=== PATIENT | male | born 1960 | race Caucasian/White ===

== ENCOUNTER 2016-06-26 14:44 | Inpatient (IN) | payer OTHER ==
--- NOTE | ~2016-06-26 | DS ---
Discharge Summary [facility] [address] [place]. [address] NAME: BETO FAIRBANKS : 64 STATUS : DIS IN PAT#: [id number] AGE: 56 ADM/REG DATE : 06/26/16 MR#: [id number] REPORT SERV DATE: 07/06/16 DICTATED BY: FRED HARRISON DATE: 07/05/16 REPORT STATUS : Draft TRANSCRIBED BY: MODL DATE: 07/05/16 ADMISSION DATE: 06/26/2016 DISCHARGE DATE: 07/05/2016 DISCHARGE DIAGNOSES: 1. Acute on chronic hypoxic and hypercapnic respiratory failure. 2. Bilateral pulmonary interstitial infiltrates of uncertain etiology. 3. Acute exacerbation of chronic obstructive pulmonary disease, currently stable. 4. Metastatic lung cancer. 5. Alcohol withdrawal. 6. Chronic microcytic anemia. 7. Chronic obstructive pulmonary disease. 8. History of polycythemia vera. 9. Left elbow abscess. CONSULTANTS DURING THIS HOSPITALIZATION: 1. Dr. Dc with Surgery. 2. Dr. Lilliam Fajardo and Ambrocio Cloud PA-C, of Pulmonology. 3. Dr. Mckeon and Dr. Keith Flowers of [facility]. BRIEF HISTORY OF PRESENT ILLNESS: The patient is a 56-year-old male with above history who presented to [facility] due to worsening shortness of breath. For detailed history and physical exam, please see note dictated by Dr. Chaudhry on 06/26/2016. HOSPITAL COURSE: After being admitted to the hospital, this patient was admitted to the [facility] under the care of Dr. James. Please refer to interim summary dictated by Dr. James on 07/04/2016. I took over this patient's care on 07/05/2016. This patient was doing relatively well. He was breathing better when his head was elevated to 30 degrees and he has required home O2. These are being arranged through our Case Management Department, and he was also given a hospital bed because of changing in positioning that helps his breathing. This patient was noted to have Staph aureus in the elbow wound culture. He has been on Bactrim. He continues to do better. However, I do not have the exact sensitivities. We discussed with the patient possibility of staying in the hospital one extra day. However, patient wants to go home and said that if he needs to change antibiotics he can come back and get that done through our Case Management Department. He remained stable, otherwise. He is on Librium which we will wean off. He is on prednisone which we will wean off. He has been given inhalers and home O2 will be arranged as well. DISCHARGE DISPOSITION: Home. DISCHARGE ACTIVITY: As tolerated. DISCHARGE DIET: Low-sodium diet. DISCHARGE MEDICATIONS: Vitamin B12 1000 mcg once daily; folic acid 1 mg once daily; Librium 10 mg p.o. taper; MD Torres mouthwash 10 mL 4 times daily; Bactrim DS one twice daily; Discharge Summary [address] [place]. [address] NAME: BETO FAIRBANKS : 64 STATUS : DIS IN PAT#: [id number] AGE: 56 ADM/REG DATE : 06/26/16 MR#: [id number] REPORT SERV DATE: 07/06/16 DICTATED BY: FRED HARRISON DATE: 07/05/16 REPORT STATUS : Draft TRANSCRIBED BY: JUAN DATE: 07/05/16 prednisone 20 mg p.o. taper; Prilosec 20 mg once daily; albuterol nebs 1 neb four times daily p.r.n. for shortness of breath; Xanax 0.25 mg p.o. twice daily p.r.n.; Nada 10/325 half tablet 4 times daily p.r.n. for pain, #10 with no refills given; oxycodone 5 mg q.4 p.r.n., #15 with no refills given; Ventolin HFA as rescue inhaler as needed; Hydrea 1000 mg once daily; potassium 10 mEq once daily; Neosporin as needed; Breo Ellipta 2 puffs 2 puffs twice daily. DISCHARGE FOLLOWUP: With Dr. Flowers and with Dr. Luis Nam as needed. More than 35 minutes spent planning this patient's discharge, reconciling medications, writing prescriptions, discussing hospital care, followup with the patient and documenting this discharge. ZACH/JUAN Fred Harrison M.D. / [id number] CC: Nahed Peterson M.D. Bertrand Marquess Anz III, M.D.
--- NOTE | ~2016-06-26 | IDS ---
Interim Discharge Summary [facility] [address] [place]. [address] NAME: BETO FAIRBANKS : 64 STATUS : ADM IN [facility]#: [id number] AGE: 56 ADM/REG DATE : 06/26/16 MR#: [id number] REPORT SERV DATE: 07/04/16 DICTATED BY: HANNY CALI II DATE: 07/04/16 REPORT STATUS : Draft TRANSCRIBED BY: MODL DATE: 07/04/16 ADMISSION DATE: 06/26/2016 DISCHARGE DATE: DATE OF INTERIM: 06/04/2016. INTERIM DIAGNOSES: 1. Acute hypoxic and hypercapnic respiratory failure. 2. Bilateral pulmonary interstitial infiltrates of uncertain etiology. 3. Acute exacerbation of chronic obstructive pulmonary disease. 4. Metastatic lung cancer. 5. Ethanol withdrawal. 6. Chronic macrocytic anemia. 7. Chronic obstructive pulmonary disease. 8. History of polycythemia vera. 9. Left elbow abscess. CONSULTS: 1. Dr. Dc with Surgery. 2. Dr. Fajardo and Dr. Bk Cloud with Pulmonary. 3. Dr. Mckeon and Dr. Flowers with [facility]. BRIEF HISTORY OF PRESENT ILLNESS: The patient is a 56-year-old male with the above history, who presented to [facility] due to worsening shortness of breath. For detailed history and physical examination, please see Dr. Chaudhry's note from 06/26/2016. HOSPITAL COURSE: On admission, the patient's blood gas showed a pH of 7.36, pCO2 of 49, PO2 of 92 on 50%. He is very short of breath, wheezing. He was evaluated by Critical Care originally in the ICU and given his underlying lung cancer, he was placed on Vapotherm and monitored in the IMCU. Critical Care subsequently signed off. The patient continued to have difficulty breathing and was placed on BiPAP intermittently. His pCO2 seem to wax and wane and he began to become somewhat altered and agitated fighting his BiPAP. It came to light that he drank about a 12-pack or more a day and was likely experiencing ethanol withdrawal. He was briefly placed on Precedex drip and given fairly aggressive Ativan for several days until he is able to be weaned off. A CTA of his chest was also done, given concern for possible pulmonary embolism. There was no pulmonary embolism found; however, it did show a diffuse hazy interstitial infiltrates throughout the lung dominguez concerning for pulmonary edema, pneumonitis versus interstitial spread of malignancy. Otherwise, it showed previously known 2.1 cm centrally necrotic appearing left lymph node adjacent to the pectoralis muscle as well as cavitary nodule and two more solid-appearing nodules in the right upper lobe and an irregular nodular infiltrate in the left upper lobe suspicious for pulmonary metastatic disease. The patient had reportedly been previously responding to his chemotherapy treatment with several of his nodes and nodules showing improvement, so interstitial spread of disease seemed less likely. Pulmonary was reconsulted and has subsequently assisted. The patient has been on antibiotic, steroids, and aggressive bronchodilator treatment with BiPAP and seems to be improving slowly. He has been able to Interim Discharge Summary [address] [address] NAME: BETO FAIRBANKS : 64 STATUS : ADM IN PAT#: [id number] AGE: 56 ADM/REG DATE : 06/26/16 MR#: [id number] REPORT SERV DATE: 07/04/16 DICTATED BY: HANNY CALI II DATE: 07/04/16 REPORT STATUS : Draft TRANSCRIBED BY: JUAN DATE: 07/04/16 wean down off his BiPAP and diffuse wheezing also improved, now he is down to 5 L by nasal cannula and rapidly improving. Hopefully, he will be able to go home in the next day or so and home oxygen will be arranged. Also of note, he was noted to have a left elbow fluid collection concerning for abscess. X-ray was unremarkable for joint effusion and Dr. Dc was consulted for I and D. This was accomplished this morning and cultures have been sent. The patient had previous been finished with his antibiotic course for his COPD exacerbation. Though, we will start Bactrim for treatment of his elbow until cultures return. Dr. Harrison will take over the patient's care starting tomorrow. ROSANNE/JUAN Hanny Cali II, MD / [id number] CC: Hanny Cali II, MD
--- NOTE | ~2016-06-26 | OP ---
Record Of Operation [facility] [address] [place]. [address] NAME: BETO FAIRBANKS : 64 STATUS : ADM IN [facility]#: [id number] AGE: 56 ADM/REG DATE : 06/26/16 MR#: [id number] REPORT SERV DATE: 07/04/16 DICTATED BY: ANDREW NUÑEZ DATE: 07/04/16 REPORT STATUS : Draft TRANSCRIBED BY: MODConcepcion DATE: 07/04/16 DATE OF PROCEDURE: 07/04/2016 PREOPERATIVE DIAGNOSES: 1. Left elbow abscess. 2. Stage IV lung cancer. 3. Alcohol withdrawal. 4. Chronic obstructive pulmonary disease exacerbation. 5. Nicotine dependence. POSTOPERATIVE DIAGNOSES: 1. Left elbow abscess. 2. Stage IV lung cancer. 3. Alcohol withdrawal. 4. Chronic obstructive pulmonary disease exacerbation. 5. Nicotine dependence. PROCEDURE: Incision and drainage of complex left elbow abscess with culture. ANESTHESIA: IV pain medications and local anesthesia. COMPLICATIONS: None. DRAINS: None. ESTIMATED BLOOD LOSS: 15 mL. FINDINGS: The patient was noted to have a fluctuant erythematous left elbow mass. It was prepped with Betadine solution and drained with a thick yellow white purulent drainage that was cultured. The patient remained at the bedside. He was informed of the risks, benefits, and alternatives, and agreed to the procedure. He is aware of the potential for bleeding, infection, poor cosmetic result, chronic pain, need for further surgical intervention, and limb loss. OPERATIVE TECHNIQUE: The patient remained at his bedside and had preoperative IV pain medicine per schedule. His left elbow was then prepped and draped with Betadine solution. Local anesthesia was then instilled. A 15 blade knife was used to make a longitudinal incision over the most fluctuant area with approximately 50 mL of purulent yellow white necrotic material being drained. It was cultured x2. These cultures were obtained from the wound immediately after drainage. At this point, the wound was explored and then tunneled toward the elbow, but did not involve the joint. The entire cavity was explored, and there was no evidence of any other cavities, and it was packed with Aquacel Ag rope followed by dry gauze and roll gauze. He tolerated the procedure well. We will continue dressing changes. Record Of Operation [facility] [address] [facility] [place]. [address] NAME: BETO FAIRBANKS : 64 STATUS : ADM IN PAT#: [id number] AGE: 56 ADM/REG DATE : 06/26/16 MR#: [id number] REPORT SERV DATE: 07/04/16 DICTATED BY: ANDREW NUÑEZ DATE: 07/04/16 REPORT STATUS : Draft TRANSCRIBED BY: JUAN DATE: 07/04/16 /JUAN Andrew Nuñez M.D. / [id number] CC: Miki James II, MD
--- NOTE | ~2016-06-26 | PUL ---
[place] [place]. [address] NAME: BETO FAIRBANKS : 64 STATUS : DIS IN PAT#: [id number] AGE: 56 ADM/REG DATE : 06/26/16 MR#: [id number] REPORT SERV DATE: 07/11/16 DICTATED BY: STEPHEN CABRERA DATE: 07/10/16 REPORT STATUS : Draft TRANSCRIBED BY: MODL DATE: 07/10/16 PULMONARY FUNCTION TEST PROCEDURE PERFORMED: Overnight oximetry. Recorded time was 6 hours. The patient had 7 minutes of an oxygen saturation less than 88% with a mildly increased desaturation event index. IMPRESSION: Borderline study with very mild oxygen desaturation at night. The patient does not have five continues minutes of oxygen desaturation though does have over five minutes of oxygen less than 88%. DALE/JUAN Stephen Cabrera M.D. / [id number] CC: Luis Nam M.D.
--- NOTE | ~2016-06-26 | CN ---
Consultation Report [place] [id number] [facility] [place]. [address] NAME: BETO FAIRBANKS : 64 STATUS : ADM IN [facility]#: [id number] AGE: 56 ADM/REG DATE : 06/26/16 MR#: [id number] REPORT SERV DATE: 07/03/16 DICTATED BY: ANDREW NUÑEZ DATE: 07/03/16 REPORT STATUS : Draft TRANSCRIBED BY: MODL DATE: 07/03/16 SURGICAL CONSULTATION DATE OF CONSULTATION: 07/01/2016 REASON FOR CONSULTATION: Left elbow abscess. HISTORY OF PRESENT ILLNESS: This 56-year-old gentleman was admitted with alcohol withdrawal and COPD exacerbation. He has a history of stage IV lung cancer, thrombocytopenia, hypertension, and anemia. He is undergoing radiation therapy. He was noted to have a swollen left elbow with fluctuance and had imaging that revealed no evidence of fracture or dislocation of the elbow and swelling, likely representing bursitis. He feels it is an abscess and wants the area drained. I have told him if it is bursitis that he may need evaluation per Orthopedic Surgery, and he prefers incision and drainage. He has done drainage of his right elbow to himself in the past. PAST MEDICAL HISTORY: As above with heart disease and recent pneumonias. SOCIAL HISTORY: The patient smokes two packs of cigarettes per day since age 11 and drinks a case of beer weekly. FAMILY HISTORY: Positive for prostate cancer, lymphoma, and gastric cancer. MEDICATIONS: Please see hospital chart. ALLERGIES: NO KNOWN DRUG ALLERGIES. REVIEW OF SYSTEMS: No headache, blurred vision, dizziness, chest pain, shortness of breath, cough, dyspnea on exertion, syncope, palpitations, jaundice, or itching. PHYSICAL EXAMINATION: GENERAL: Well-developed male and is cachectic. NECK: Supple. No adenopathy. CARDIOVASCULAR: Regular rate with tachycardia. RESPIRATORY: Clear to auscultation. ABDOMEN: Soft and nondistended. EXTREMITIES: The patient has a swollen left elbow with fluctuance. There is no redness, swelling, or soft tissue edema or bulla. ASSESSMENT: 1. Left elbow bursitis, more likely than abscess. 2. Alcohol withdrawal. 3. Chronic obstructive pulmonary disease. Consultation Report [place] [address] [place]. [address] NAME: BETO FAIRBANKS : 64 STATUS : ADM IN PAT#: [id number] AGE: 56 ADM/REG DATE : 06/26/16 MR#: [id number] REPORT SERV DATE: 07/03/16 DICTATED BY: ANDREW NUÑEZ DATE: 07/03/16 REPORT STATUS : Draft TRANSCRIBED BY: JUAN DATE: 07/03/16 4. Stage IV lung cancer with radiation therapy. 5. Anemia. PLAN: We will consider I and D, but we will discuss possible need for orthopedic evaluation if this is bursitis versus palliative care with drainage. The patient is aware of the risks, benefits, and alternatives and wishes to proceed. MATTEO/JUAN Andrew Nuñez M.D. / [id number] CC: Miki James II, MD
--- NOTE | ~2016-06-26 | HP ---
History And Physical [place] [address] [facility] [place]. [address] NAME: BETO FAIRBANKS : 64 STATUS : ADM IN [facility]#: [id number] AGE: 56 ADM/REG DATE : 06/26/16 MR#: [id number] REPORT SERV DATE: 06/27/16 DICTATED BY: AJAY LUNDY DATE: 06/27/16 REPORT STATUS : Draft TRANSCRIBED BY: JUAN DATE: 06/27/16 DATE OF ADMISSION: 06/26/2016 CHIEF COMPLAINT: Shortness of breath. HISTORY OF PRESENT ILLNESS: The patient is a 56-year-old male with past medical history of COPD, lung cancer with metastasis recent diagnosis, anemia, prior essential thrombocytopenia, hypertension, kidney stones, who has been undergoing radiation for lung cancer and comes in after having progressive shortness of breath. Symptoms worsened last night and they have been continuous. Per family's recommendation, the patient was finally willing to come to the emergency room. It has been constant, essentially severe. The patient was at times unresponsive due to hypoxia, had generalize deep pressure pain, nonradiating. No nausea or vomiting, but did have fevers. No diarrhea, has had breaking down of skin due to radiation component, has had cough and wheezing. Symptoms are worsened with deep breathing, exertion. There are no relieving symptoms. The patient was given fluids earlier in the week as it was thought he was dehydrated but shortness of breath became worse. The patient was evaluated by Critical Care Medicine, and severity of illness and progression of the lung cancer was discussed with the patient and family. Recommending trying to improve respiratory status, optimize electrolytes but Palliative consult, and the patient would like to be close to his family during this time and recommended against and was discussed to not be in ICU setting at this time. REVIEW OF SYSTEMS: For additional review of systems the patient noted: GENERAL: Positive for fever, but no chills. EYES: No reported pain or discharge. ENT: Mild congestion and sore throat. NEURO: No headaches or confusion. SKIN: Does have different stages blisters and breakdown of skin on legs and arms. RESPIRATORY: Shortness of breath and dyspnea on exertion. CV: Palpitations, mild chest discomfort. GI: No nausea or vomiting. : No dysuria or hematuria. MUSCULOSKELETAL: Generalized myalgias and arthralgias. ENDO: Increased fatigue. No polyuria. HEME: No bleeding or bruising. IMMUNOLOGIC: No rhinorrhea. PSYCH: Noted for anxiety, gross confusion. PAST MEDICAL HISTORY: COPD, hypertension, lung cancer, anemia, prior central thrombocytopenia, arthritis, COPD, heart disease, hypertension, and recent pneumonias. FAMILY HISTORY: Of lymphoma, prostate cancer, stomach cancer but no history of lung cancer. SOCIAL HISTORY: Smoked 2 packs per day since age of 11, drinks a case of beer weekly. History And Physical [address] [address] NAME: BETO FAIRBANKS : 64 STATUS : ADM IN [facility]#: [id number] AGE: 56 ADM/REG DATE : 06/26/16 MR#: [id number] REPORT SERV DATE: 06/27/16 DICTATED BY: AJAY LUNDY DATE: 06/27/16 REPORT STATUS : Draft TRANSCRIBED BY: JUAN DATE: 06/27/16 SURGERY: Cystoscopy, left retrograde pyelogram and left ureteroscopy. EKG; sinus tachycardia at 119, QTc 461. ALLERGIES: NO KNOWN DRUG ALLERGIES. MEDICATIONS: Albuterol, Xanax, vitamin B, Decadron, folic acid, [place], hydroxyurea, Advil, Levaquin, Prilosec, Roxicodone, K-Tabs, Neosporin, and Advil. PHYSICAL EXAMINATION: VITAL SIGNS: Blood pressure is 117/77, pulse 118, respirations 24 to 30, O2 sats initially 65% on 15 L up to 92% on Vapotherm. GENERAL: Well developed, well nourished. However, now chronically ill, now quite frail due to respiratory status. EYES: No scleral icterus. EOMI. ENT: Does have raw spots. Mucous membranes with blistering. RESPIRATORY: Bilateral wheeze and polyphonic breath sounds throughout. No stridor. CV: Tachycardic, no pedal edema. GI: Soft, nontender, nondistended. : Deferred. MUSCULOSKELETAL: Moves all extremities. SKIN: Warm, dry, but multiple blistering areas on extremities. LYMPH: No gross pedal edema. HEME: Occasional bruising sites. NEURO: General weakness diffusely but strong handshake and hand feather baler. PSYCH: Appropriate mood and affect, still remembers prior conversations and recent hospitalization. LABS: Urinalysis; moderate blood, negative leukocyte esterase, nitrite, however, 0 RBCs on microscopy, 100 protein. ABG; pH 7.36, pCO2 of 49, pO2 of 92, bicarb 27.5. CBC; WBC count 1.6, H and H 10 and 27.8, platelets 35, INR 1.1. Procalcitonin 2.26. Sodium 125, potassium 2.8, bicarb 35, BUN creatinine 12 and 0.92, glucose 100. AST ALT 55 and 59, alkaline phosphatase 71, BNP 197.1, and lactate 1.4. ASSESSMENT AND PLAN: 1. Dyspnea secondary to metastatic lung cancer. 2. Hypoxia with acute respiratory failure. 3. Hypokalemia. 4. Pancytopenia. 5. Hyponatremia. 6. Oral pain. 7. DNR DNI. PLAN: 1. For acute hypoxic respiratory failure; Vapotherm, Lasix given by critical care team, supportive treatment. The patient currently was receiving radiation for lung cancer. Consult Dr. Flowers and Palliative Care for goals of care. Continue [facility] supportive History And Physical [address] [address] NAME: BETO FAIRBANKS : 64 STATUS : ADM IN [facility]#: [id number] AGE: 56 ADM/REG DATE : 06/26/16 MR#: [id number] REPORT SERV DATE: 06/27/16 DICTATED BY: AJAY LUNDY DATE: 06/27/16 REPORT STATUS : Draft TRANSCRIBED BY: MODConcepcion DATE: 06/27/16 treatment. O2 DuoNebs. 2. Dyspnea due to metastatic lung cancer. Again consult Dr. Flowers and Palliative team for additional goals of care. The patient does have diffuse mets, the patient requesting if he were to be in the dying phase, he would like to do this at home. We will try to optimize lytes and functional status, again likely hospice. 3. Hypokalemia. Replace in the emergency room as tolerated. 4. Pancytopenia, status post radiation, monitor. 5. Hyponatremia, likely secondary to lung cancer, possible SIADH component. 6. Oral pain, MD Brian hinojosa mouthwash for supportive treatment. 7. DNR/DNI. Requesting to go home and in his own comfort of his home if no additional options are available. Discussed with Dr. Still. The patient and family understands the poor prognosis. DDN/MODL Ajay Lundy MD / [id number] CC: MD Luis Lind M.D.
--- NOTE | ~2016-06-26 | CN ---
Consultation Report [facility] [address] [place]. [address] NAME: BETO FAIRBANKS : 64 STATUS : ADM IN PAT#: [id number] AGE: 56 ADM/REG DATE : 06/26/16 MR#: [id number] REPORT SERV DATE: 06/26/16 DICTATED BY: ALAN JAFFE DATE: 06/26/16 REPORT STATUS : Draft TRANSCRIBED BY: MODL DATE: 06/26/16 PULMONARY AND CRITICAL CARE MEDICINE EVALUATION DATE OF CONSULTATION: 06/26/2016 I was asked to evaluate Mr. Beto Fairbanks in the emergency department bed 3 this evening for potential intubation by Dr. Mccoy in the emergency department. He is a very unfortunate, 56-year-old gentleman from [facility] who was recently diagnosed with widely metastatic adenocarcinoma of the lung having presented with multiple subcutaneous nodules, anorexia, weight loss, and declining performance status. CT of the chest, abdomen, and pelvis performed on 05/06/2016, revealed a right upper lobe pulmonary primary, mediastinal lymphadenopathy, and multiple soft tissue masses in the thorax and abdomen. In addition, he had a left adrenal mass. One of the subcutaneous metastases from the left axilla was biopsied on 05/04/2016 and revealed metastatic poorly differentiated adenocarcinoma favoring the lung primary. He has already started chemotherapy with Dr. Flowers. A staging MRI was also performed, which revealed two brain metastases including 1.7 x 1.3 x 1.6 cm mass in the right parietal cortex with associated vasogenic edema and a 6 x 7 x 7 mm right cerebellar mass adjacent to the brainstem near the right hypoglossal nerve. He has already been seen by Dr. Kuhn from [facility], who has performed SRS to each of the two brain lesions. In discussing his recent clinical decline with the patient and his son and sister as well as multiple other family members in the emergency department tonight, he understands that he has a very advanced age malignancy with poor chance for long-term survival. He notes that his quality of life has been quite poor recently and he is in quite a bit of pain and is very short of breath. We discussed options for various levels of care including admission to the intensive care unit with intubation and mechanical ventilation as well as a more conservative approach including diuretics, bronchodilators, antibiotics, and corticosteroid administration with the understanding that he is approaching the end of his life. Mr. Fairbanks has elected for conservative management including admission to the floor as a full DNR and ongoing attempts to relieve his dyspnea with diuretics, antibiotics, bronchodilators, and steroids as well as initiation of drugs focused on his comfort including morphine and Ativan. He verbalized that he is not interested in any advanced forms of life support if they will not change his long-term prognosis and his family is aware of that decision and supportive of it. We will ask the Hospital Medicine to admit him to the [facility] for ongoing titration of Vapotherm. Oncology evaluation tomorrow morning and palliative care evaluation as well. He is amenable to hospice and that concept was introduced this evening as well should he not improve on conservative management. All of Mr. Fairbanks and his family's questions have been answered, and I have discussed this case with Dr. Mccoy and Dr. Chaudhry who will be admitting him to the telemetry unit this evening for ongoing care. Pulmonary Critical Care Medicine will sign off. Please reconsult if the patient's goals of care change or if we may be of any other assistance. Consultation Report [address] [place]. [address] NAME: BETO FAIRBANKS : 64 STATUS : ADM IN [facility]#: [id number] AGE: 56 ADM/REG DATE : 06/26/16 MR#: [id number] REPORT SERV DATE: 06/26/16 DICTATED BY: ALAN JAFFE DATE: 06/26/16 REPORT STATUS : Draft TRANSCRIBED BY: JUAN DATE: 06/26/16 SYDNEE/JUAN Alan Jaffe MD / [id number] CC: MD Luis Lind M.D.
[~2016-06-26 14:44] MED LIST: ALBUTEROL0.63 MG/3 INH; ALEVE220 MG PO; ASAB PO; HALF81 PO; HYDREA; HYDREA PO; HYDROCHLOROT25 MG PO; LIPITOR20 PO; NORCO1 TAB PO; PRILOSEC OTC20 MG PO; PROVENTSOL INH; VENTOLIN HFA INH; VITAMIN B-122500 MCG SL
[2016-06-26 15:43] LABS: BASOPHILS 1.9 %; BASOPHILS ABSOLUTE 0.03 10/3/uL (0.0-0.16); EOSINOPHILS 0.6 %; EOSINOPHILS ABSOLUTE 0.01 10/3/uL (0.0-0.53); IMMATURE GRANULOCYTES 5.1 %; IMMATURE GRANULOCYTES ABSOLUTE 0.08 10/3/uL (0.0-0.11); LYMPHOCYTES 27.2 %; LYMPHOCYTES ABSOLUTE 0.43 10/3/uL (0.67-4.30); MEAN CORPUSCULAR HEMOGLOB 44.6 pg (26.0-34.0); MEAN CORPUSCULAR VOLUME 124.1 fL (80-100); MEAN PLATELET VOLUME 11.9 fL (9.2-13.0); MONOCYTES 4.4 %; MONOCYTES ABSOLUTE 0.07 10/3/uL (0.21-1.20); NEUTROPHILS 60.8 %; NEUTROPHILS ABSOLUTE 0.96 10/3/uL (2.02-8.40); RBC DISTRIBUTION WIDTH 13.3 % (12.0-16.0)
[2016-06-26 15:44] LABS: ER CBC TAT 0 Hrs 08 Mins; HEMATOCRIT 27.8 % (40.0-51.0); PLATELET COUNT 35 10/3/uL (150-400); RED CELL COUNT 2.24 10/6/uL (4.7-6.1); WHITE BLOOD CELLS 1.6 10/3/uL (4.5-10.5)
[2016-06-26 15:46] LABS: MANUAL DIFF NO %
[2016-06-26 15:50] LABS: INTERNATIONAL NORMAL RATI 1.1 UNITS (-); PARTIAL THROMBO TIME 30.3 SEC (22.5-37.2); PROTIME (NOT ORD) 14.4 SEC (12.0-14.5)
[2016-06-26 15:57] LABS: ALKALINE PHOSPHATASE 71 U/L (45-117); CALCIUM, SERUM 9.2 MG/DL (8.5-10.4); CHLORIDE, SERUM 83 MMOL/L (96-112); CREATININE 0.92 MG/DL (0.70-1.30); GFR AFRICAN AMERICAN 109 ML/MIN (>=60); GFR NON AFRICAN AMERICAN 94 ML/MIN (>=60); SGOT(AST) 55 U/L (5-40); SGPT(ALT) 59 U/L (5-65); TOTAL BILIRUBIN 0.5 MG/DL (0-1.2)
[2016-06-26 15:58] LABS: A/G RATIO 0.5 (0.7-1.9); ALBUMIN 2.2 G/DL (3.5-5.0); BUN (BLOOD UREA NITROGEN) 12 MG/DL (6-23); CO2 (CARBON DIOXIDE) 35 MMOL/L (24-34); GLOBULIN 4.8 G/DL (2.5-4.1); GLUCOSE, SERUM 100 MG/DL (60-99); POTASSIUM, SERUM 2.8 MMOL/L (3.5-5.3); SODIUM, SERUM 125 MMOL/L (135-148)
[2016-06-26 15:59] LABS: LACTATE 1.4 MMOL/L (0.3-2.4)
[2016-06-26 16:19] LABS: EOSINOPHILS 1 %; EOSINOPHILS ABSOLUTE (CALC) 0.02 10/3/uL (0.0-0.53); ER DIFF TAT 0 Hrs 43 Mins; LYMPHOCYTES 22 %; LYMPHOCYTES ABSOLUTE (CALC) 0.35 10/3/uL (0.67-4.30); MONOCYTES 15 %; MONOCYTES ABSOLUTE (CALC) 0.24 10/3/uL (0.21-1.20); NEUTROPHILS ABSOLUTE (CALC) 0.99 10/3/uL (2.02-8.40); SEGMENTED NEUTROPHIL (0) 62 %; TOTAL NUCLEATED CELLS 100
[2016-06-26 16:23] LABS: PROCALCITONIN 2.26 ng/mL (<0.5)
[2016-06-26 16:24] LABS: ANISOCYTOSIS 1+ (5-10/OIF) (0-5/OIF)
[2016-06-26 16:25] LABS: BASOPHILIC STIPPLING 1+ (2-5/OIF) (0-1/OIF); MICROCYTES 1+ (5-10/OIF) (0-5/OIF)
[2016-06-26 16:27] LABS: POLYCHROMASIA 1+ (2-5/OIF) (0-1/OIF)
[2016-06-26 17:23] LABS: ALLENS TEST Pos; BE (BASE EXCESS) 1.6 MEQ/L (0 +/- 2.5); CARBOXYHEMOGLOBIN 5.3 % (0-3); DEVICE VM; HCO3 (ACTUAL BICARBONATE) 27.5 MEQ/L (23-27); HEMOBLOGIN CONTENT 10.4 G/DL (14-18); INSTRUMENT SERIAL # 8087; O2 CONTENT 13.4 VOL% (18-24); OPERATOR ID 14335; PCO2 (CO2 TENSION) 49 MMHG (35-45); PO2 (O2 TENSION) 92 MMHG (79-93); SAMPLE Arterial; pH 7.36 (7.37-7.43)
[2016-06-26] MEDS ORDERED: CYANO1000T PO (17:27)
[2016-06-26] MEDS ORDERED: DEX2 PO (17:28)
[2016-06-26] MEDS ORDERED: FOLIC PO (17:29)
[2016-06-26] MEDS ORDERED: NORCO1 TAB PO (17:29)
[2016-06-26] MEDS ORDERED: OXYCOD PO (17:30)
[2016-06-26] MEDS ORDERED: HYDREA PO (17:30)
[2016-06-26] MEDS ORDERED: X25 PO (17:30)
[2016-06-26] MEDS ORDERED: LEVAQUIN750 MG PO (17:31)
[2016-06-26] MEDS ORDERED: K-TABS10 MEQ PO (17:31)
[2016-06-26] MEDS ORDERED: VENTOLIN HFA INH (17:31)
[2016-06-26] MEDS ORDERED: ALBUTEROL5 INH (17:31)
[2016-06-26 17:36] LABS: ASCORBIC ACID (UR NOT ORDER) NEG (NEG); BILIRUBIN, URINE NEGATIVE (NEG); ER URINALYSIS TAT 0 Hrs 10 Mins; KETONE, URINE NEGATIVE (NEG); LEUKOCYTE ESTERASE(NOT OR NEG (NEG); NITRITE (URINE) NEG (NEG); WBC (NOT ORDERED) (RFLEX) 1 (0-5)
[2016-06-26] MEDS ORDERED: ADVIL CONGESTION PO (17:39)
[2016-06-26] MEDS ORDERED: ADVIL PO (17:39)
[2016-06-26] MEDS ORDERED: NEO-OINT15 TOP (17:39)
[2016-06-26] MEDS ORDERED: PRILO PO (17:41)
[2016-06-27 06:21] LABS: BUN (BLOOD UREA NITROGEN) 12 MG/DL (6-23); CALCIUM, SERUM 9.9 MG/DL (8.5-10.4); CHLORIDE, SERUM 91 MMOL/L (96-112); CO2 (CARBON DIOXIDE) 35 MMOL/L (24-34); CREATININE 0.92 MG/DL (0.70-1.30); GFR AFRICAN AMERICAN 109 ML/MIN (>=60); GFR NON AFRICAN AMERICAN 94 ML/MIN (>=60); GLUCOSE, SERUM 174 MG/DL (60-99); POTASSIUM, SERUM 4.5 MMOL/L (3.5-5.3); SODIUM, SERUM 131 MMOL/L (135-148)
[2016-06-27 06:36] LABS: HEMATOCRIT 28.7 % (40.0-51.0); HEMOGLOBIN 10.1 g/dL (13.6-17.8); MEAN CORPUS HGB CONC 35.2 g/dL (32.0-36.0); MEAN CORPUSCULAR HEMOGLOB 45.3 pg (26.0-34.0); MEAN PLATELET VOLUME 12.4 fL (9.2-13.0); NUCLEATED RED BLOOD CELLS 3.9 /100WBC (0-0); RBC DISTRIBUTION WIDTH 13.7 % (12.0-16.0); RED CELL COUNT 2.23 10/6/uL (4.7-6.1)
[2016-06-27 06:37] LABS: MANUAL DIFF YES %; MEAN CORPUSCULAR VOLUME 128.7 fL (80-100); PLATELET COUNT 52 10/3/uL (150-400); WHITE BLOOD CELLS 4.5 10/3/uL (4.5-10.5)
[2016-06-27 07:13] LABS: BAND NEUTROPHILS 8 %; LYMPHOCYTES 8 %; LYMPHOCYTES ABSOLUTE (CALC) 0.36 10/3/uL (0.67-4.30); MACROCYTES 4+ (>50/OIF) (0-5/OIF); MONOCYTES 11 %; NEUTROPHILS ABSOLUTE (CALC) 3.65 10/3/uL (2.02-8.40); PLATELET ESTIMATE DEC (ADEQUATE); POLYCHROMASIA 1+ (2-5/OIF) (0-1/OIF); RBC MORPHOLOGY ABN (NORMAL); SEGMENTED NEUTROPHIL (0) 73 %; TOTAL NUCLEATED CELLS 100
[2016-06-27 11:07] LABS: NUCLEATED RED BLOOD CELLS 9.4 /100WBC (0-0)
[2016-06-28 04:58] LABS: CALCIUM, SERUM 9.8 MG/DL (8.5-10.4); CHLORIDE, SERUM 90 MMOL/L (96-112); CO2 (CARBON DIOXIDE) 39 MMOL/L (24-34); CREATININE 0.71 MG/DL (0.70-1.30); GFR AFRICAN AMERICAN 123 ML/MIN (>=60); GFR NON AFRICAN AMERICAN 106 ML/MIN (>=60); POTASSIUM, SERUM 3.6 MMOL/L (3.5-5.3); SODIUM, SERUM 134 MMOL/L (135-148)
[2016-06-28 04:59] LABS: BUN (BLOOD UREA NITROGEN) 23 MG/DL (6-23); GLUCOSE, SERUM 130 MG/DL (60-99)
[2016-06-28 05:06] LABS: HEMATOCRIT 25.9 % (40.0-51.0); HEMOGLOBIN 9.1 g/dL (13.6-17.8); MEAN CORPUS HGB CONC 35.1 g/dL (32.0-36.0); MEAN CORPUSCULAR HEMOGLOB 45.5 pg (26.0-34.0); MEAN CORPUSCULAR VOLUME 129.5 fL (80-100); MEAN PLATELET VOLUME 11.3 fL (9.2-13.0); NUCLEATED RED BLOOD CELLS 2.8 /100WBC (0-0); PLATELET COUNT 51 10/3/uL (150-400); RBC DISTRIBUTION WIDTH 13.7 % (12.0-16.0); WHITE BLOOD CELLS 5.5 10/3/uL (4.5-10.5)
[2016-06-28 05:07] LABS: MANUAL DIFF YES %
[2016-06-28 07:04] LABS: BAND NEUTROPHILS 8 %; LYMPHOCYTES 4 %; LYMPHOCYTES ABSOLUTE (CALC) 0.22 10/3/uL (0.67-4.30); MACROCYTES 4+ (>50/OIF) (0-5/OIF); MONOCYTES 2 %; MONOCYTES ABSOLUTE (CALC) 0.11 10/3/uL (0.21-1.20); NEUTROPHILS ABSOLUTE (CALC) 5.17 10/3/uL (2.02-8.40); PLATELET ESTIMATE DEC (ADEQUATE); POLYCHROMASIA 1+ (2-5/OIF) (0-1/OIF); SEGMENTED NEUTROPHIL (0) 86 %; TOTAL NUCLEATED CELLS 100; TOXIC GRANULATION 1+
[2016-06-28 09:32] LABS: ALLENS TEST Pos; BE (BASE EXCESS) 14.6 MEQ/L (0 +/- 2.5); BIPAP 15/5 cm.H2O; CARBOXYHEMOGLOBIN 0.4 % (0-3); HCO3 (ACTUAL BICARBONATE) 42.6 MEQ/L (23-27); HEMOBLOGIN CONTENT 9.5 G/DL (14-18); INSTRUMENT SERIAL # 8083; METHEMOGLOBIN 0.2 % (0-3); O2 CONTENT 13.4 VOL% (18-24); OPERATOR ID 18801; PCO2 (CO2 TENSION) 79 MMHG (35-45); PO2 (O2 TENSION) 141 MMHG (79-93); SAMPLE Arterial; pH 7.35 (7.37-7.43)
[2016-06-28 16:31] LABS: BE (BASE EXCESS) 12.5 MEQ/L (0 +/- 2.5); CARBOXYHEMOGLOBIN 0.5 % (0-3); DEVICE NC; HCO3 (ACTUAL BICARBONATE) 37.5 MEQ/L (23-27); HEMOBLOGIN CONTENT 9.6 G/DL (14-18); INSTRUMENT SERIAL # 8083; METHEMOGLOBIN 0.3 % (0-3); O2 CONTENT 12.9 VOL% (18-24); OPERATOR ID 14335; PCO2 (CO2 TENSION) 52 MMHG (35-45); PO2 (O2 TENSION) 84 MMHG (79-93); SAMPLE Arterial; pH 7.48 (7.37-7.43)
[2016-06-28 16:32] LABS: ALLENS TEST Pos
[2016-06-29 02:03] LABS: HEMATOCRIT 24.5 % (40.0-51.0); HEMOGLOBIN 8.6 g/dL (13.6-17.8); MEAN CORPUS HGB CONC 35.1 g/dL (32.0-36.0); MEAN CORPUSCULAR HEMOGLOB 45.3 pg (26.0-34.0); MEAN CORPUSCULAR VOLUME 128.9 fL (80-100); MEAN PLATELET VOLUME 12.3 fL (9.2-13.0); NUCLEATED RED BLOOD CELLS 3.1 /100WBC (0-0); RBC DISTRIBUTION WIDTH 13.8 % (12.0-16.0); WHITE BLOOD CELLS 5.4 10/3/uL (4.5-10.5)
[2016-06-29 02:05] LABS: MANUAL DIFF YES %; PLATELET COUNT 70 10/3/uL (150-400)
[2016-06-29 02:14] LABS: CALCIUM, SERUM 9.6 MG/DL (8.5-10.4); CHLORIDE, SERUM 91 MMOL/L (96-112); CO2 (CARBON DIOXIDE) 39 MMOL/L (24-34); CREATININE 0.72 MG/DL (0.70-1.30); GFR AFRICAN AMERICAN 123 ML/MIN (>=60); GFR NON AFRICAN AMERICAN 106 ML/MIN (>=60); POTASSIUM, SERUM 3.8 MMOL/L (3.5-5.3); SODIUM, SERUM 134 MMOL/L (135-148)
[2016-06-29 02:17] LABS: BUN (BLOOD UREA NITROGEN) 19 MG/DL (6-23); GLUCOSE, SERUM 168 MG/DL (60-99)
[2016-06-29 02:29] LABS: BAND NEUTROPHILS 3 %; IMMATURE GRANS ABSOLUTE (CALC) 0.05 10/3/uL (0.0-0.11); LYMPHOCYTES 8 %; LYMPHOCYTES ABSOLUTE (CALC) 0.43 10/3/uL (0.67-4.30); MACROCYTES 4+ (>50/OIF) (0-5/OIF); METAMYELOCYTES 1 %; MONOCYTES 2 %; MONOCYTES ABSOLUTE (CALC) 0.11 10/3/uL (0.21-1.20); NEUTROPHILS ABSOLUTE (CALC) 4.81 10/3/uL (2.02-8.40); PLATELET ESTIMATE DEC (ADEQUATE); SEGMENTED NEUTROPHIL (0) 86 %; TOTAL NUCLEATED CELLS 100
[2016-06-29 04:28] LABS: ALLENS TEST Pos; BE (BASE EXCESS) 11.7 MEQ/L (0 +/- 2.5); CARBOXYHEMOGLOBIN 0.4 % (0-3); DEVICE NC; HCO3 (ACTUAL BICARBONATE) 37.7 MEQ/L (23-27); HEMOBLOGIN CONTENT 10.4 G/DL (14-18); INSTRUMENT SERIAL # 8083; METHEMOGLOBIN 0.1 % (0-3); OPERATOR ID 35785; PCO2 (CO2 TENSION) 58 MMHG (35-45); PO2 (O2 TENSION) 83 MMHG (79-93); SAMPLE Arterial; pH 7.43 (7.37-7.43)
[2016-06-30 03:54] LABS: HEMATOCRIT 25.9 % (40.0-51.0); HEMOGLOBIN 8.9 g/dL (13.6-17.8); MEAN CORPUS HGB CONC 34.4 g/dL (32.0-36.0); MEAN CORPUSCULAR HEMOGLOB 45.2 pg (26.0-34.0); MEAN CORPUSCULAR VOLUME 131.5 fL (80-100); MEAN PLATELET VOLUME 11.1 fL (9.2-13.0); NUCLEATED RED BLOOD CELLS 1.1 /100WBC (0-0); PLATELET COUNT 91 10/3/uL (150-400); RBC DISTRIBUTION WIDTH 13.8 % (12.0-16.0); RED CELL COUNT 1.97 10/6/uL (4.7-6.1); WHITE BLOOD CELLS 5.1 10/3/uL (4.5-10.5)
[2016-06-30 03:55] LABS: MANUAL DIFF YES %
[2016-06-30 04:00] LABS: CALCIUM, SERUM 9.6 MG/DL (8.5-10.4); CHLORIDE, SERUM 95 MMOL/L (96-112); CO2 (CARBON DIOXIDE) 40 MMOL/L (24-34); CREATININE 0.71 MG/DL (0.70-1.30); GFR AFRICAN AMERICAN 123 ML/MIN (>=60); GFR NON AFRICAN AMERICAN 106 ML/MIN (>=60); PHOSPHORUS, SERUM 4.3 MG/DL (2.5-4.5); POTASSIUM, SERUM 4.3 MMOL/L (3.5-5.3)
[2016-06-30 04:01] LABS: BUN (BLOOD UREA NITROGEN) 24 MG/DL (6-23); GLUCOSE, SERUM 128 MG/DL (60-99); SODIUM, SERUM 141 MMOL/L (135-148)
[2016-06-30 04:12] LABS: LYMPHOCYTES 6 %; LYMPHOCYTES ABSOLUTE (CALC) 0.51 10/3/uL (0.67-4.30); METAMYELOCYTES 1 %; MONOCYTES 5 %; MONOCYTES ABSOLUTE (CALC) 0.26 10/3/uL (0.21-1.20); MYELOCYTES 3 %; NEUTROPHILS ABSOLUTE (CALC) 4.34 10/3/uL (2.02-8.40); SEGMENTED NEUTROPHIL (0) 85 %; TOTAL NUCLEATED CELLS 100
[2016-06-30 04:13] LABS: MACROCYTES 4+ (>50/OIF) (0-5/OIF); PLATELET ESTIMATE DEC (ADEQUATE); RBC MORPHOLOGY ABN (NORMAL)
[2016-06-30 04:15] LABS: STOMATOCYTES 1+ (3-10/OIF) (0-2/OIF)
[2016-06-30 05:01] LABS: PROCALCITONIN 0.29 ng/mL (<0.5)
[2016-06-30 12:05] LABS: ALLENS TEST Pos; BE (BASE EXCESS) 16.2 MEQ/L (0 +/- 2.5); BIPAP 18/7 cm.H2O; CARBOXYHEMOGLOBIN 1.3 % (0-3); HCO3 (ACTUAL BICARBONATE) 42.4 MEQ/L (23-27); HEMOBLOGIN CONTENT 7.7 G/DL (14-18); INSTRUMENT SERIAL # 8083; METHEMOGLOBIN 0.3 % (0-3); O2 CONTENT 10.5 VOL% (18-24); OPERATOR ID 18801; PCO2 (CO2 TENSION) 66 MMHG (35-45); PO2 (O2 TENSION) 93 MMHG (79-93); SAMPLE Arterial; pH 7.43 (7.37-7.43)
[2016-07-01 04:52] LABS: BASOPHILS 0.5 %; BASOPHILS ABSOLUTE 0.02 10/3/uL (0.0-0.16); EOSINOPHILS 0 %; HEMATOCRIT 25.9 % (40.0-51.0); HEMOGLOBIN 8.8 g/dL (13.6-17.8); IMMATURE GRANULOCYTES 4.5 %; IMMATURE GRANULOCYTES ABSOLUTE 0.19 10/3/uL (0.0-0.11); LYMPHOCYTES 5.7 %; LYMPHOCYTES ABSOLUTE 0.24 10/3/uL (0.67-4.30); MEAN CORPUSCULAR HEMOGLOB 44.4 pg (26.0-34.0); MEAN CORPUSCULAR VOLUME 130.8 fL (80-100); MEAN PLATELET VOLUME 11.3 fL (9.2-13.0); MONOCYTES 5.5 %; MONOCYTES ABSOLUTE 0.23 10/3/uL (0.21-1.20); NEUTROPHILS 83.8 %; NEUTROPHILS ABSOLUTE 3.53 10/3/uL (2.02-8.40); NUCLEATED RED BLOOD CELLS 1.8 /100WBC (0-0); RBC DISTRIBUTION WIDTH 14.3 % (12.0-16.0); RED CELL COUNT 1.98 10/6/uL (4.7-6.1); WHITE BLOOD CELLS 4.2 10/3/uL (4.5-10.5)
[2016-07-01 04:53] LABS: CALCIUM, SERUM 9.5 MG/DL (8.5-10.4); CHLORIDE, SERUM 99 MMOL/L (96-112); CREATININE 0.64 MG/DL (0.70-1.30); GFR AFRICAN AMERICAN 129 ML/MIN (>=60); GFR NON AFRICAN AMERICAN 111 ML/MIN (>=60); GLUCOSE, SERUM 139 MG/DL (60-99); SODIUM, SERUM 142 MMOL/L (135-148)
[2016-07-01 04:54] LABS: BUN (BLOOD UREA NITROGEN) 30 MG/DL (6-23); CO2 (CARBON DIOXIDE) 35 MMOL/L (24-34)
[2016-07-01 05:04] LABS: MANUAL DIFF NO %; PLATELET COUNT 124 10/3/uL (150-400)
[2016-07-01 06:26] LABS: MACROCYTES 4+ (>50/OIF) (0-5/OIF)
[2016-07-01 06:27] LABS: PLATELET ESTIMATE SLT DEC (ADEQUATE); RBC MORPHOLOGY ABN (NORMAL); STOMATOCYTES 1+ (3-10/OIF) (0-2/OIF)
[2016-07-02 04:29] LABS: CALCIUM, SERUM 8.9 MG/DL (8.5-10.4); CHLORIDE, SERUM 100 MMOL/L (96-112); GFR AFRICAN AMERICAN 117 ML/MIN (>=60); GFR NON AFRICAN AMERICAN 101 ML/MIN (>=60); SODIUM, SERUM 137 MMOL/L (135-148)
[2016-07-02 04:30] LABS: BUN (BLOOD UREA NITROGEN) 25 MG/DL (6-23); CO2 (CARBON DIOXIDE) 30 MMOL/L (24-34); GLUCOSE, SERUM 95 MG/DL (60-99)
[2016-07-02 04:39] LABS: HEMATOCRIT 24.3 % (40.0-51.0); HEMOGLOBIN 8.5 g/dL (13.6-17.8); MEAN CORPUSCULAR HEMOGLOB 45.7 pg (26.0-34.0); MEAN CORPUSCULAR VOLUME 130.6 fL (80-100); MEAN PLATELET VOLUME 11.1 fL (9.2-13.0); NUCLEATED RED BLOOD CELLS 2.4 /100WBC (0-0); RBC DISTRIBUTION WIDTH 14.3 % (12.0-16.0); RED CELL COUNT 1.86 10/6/uL (4.7-6.1)
[2016-07-02 04:41] LABS: MANUAL DIFF YES %; PLATELET COUNT 167 10/3/uL (150-400); WHITE BLOOD CELLS 6.2 10/3/uL (4.5-10.5)
[2016-07-02 05:11] LABS: BAND NEUTROPHILS 2 %; IMMATURE GRANS ABSOLUTE (CALC) 0.31 10/3/uL (0.0-0.11); IMMATURE MONONUCLEAR 1 % (0); LYMPHOCYTES 10 %; LYMPHOCYTES ABSOLUTE (CALC) 0.62 10/3/uL (0.67-4.30); METAMYELOCYTES 3 %; MYELOCYTES 2 %; NEUTROPHILS ABSOLUTE (CALC) 5.21 10/3/uL (2.02-8.40); SEGMENTED NEUTROPHIL (0) 82 %; TOTAL NUCLEATED CELLS 100
[2016-07-02 05:12] LABS: PLATELET ESTIMATE ADQ (ADEQUATE); TEARDROP SHAPED RBCS OCC (0-2/OIF)
[2016-07-02 05:13] LABS: TOXIC GRANULATION SLT
[2016-07-02 15:57] LABS: FOLATE 7.3 NG/ML (>5.2)
[2016-07-03 06:03] LABS: CALCIUM, SERUM 8.4 MG/DL (8.5-10.4); CHLORIDE, SERUM 105 MMOL/L (96-112); CO2 (CARBON DIOXIDE) 31 MMOL/L (24-34); CREATININE 0.75 MG/DL (0.70-1.30); GFR AFRICAN AMERICAN 121 ML/MIN (>=60); GFR NON AFRICAN AMERICAN 104 ML/MIN (>=60); GLUCOSE, SERUM 88 MG/DL (60-99); POTASSIUM, SERUM 4.6 MMOL/L (3.5-5.3); SODIUM, SERUM 140 MMOL/L (135-148)
[2016-07-03 06:06] LABS: BUN (BLOOD UREA NITROGEN) 15 MG/DL (6-23)
[2016-07-03 06:15] LABS: HEMATOCRIT 25.1 % (40.0-51.0); HEMOGLOBIN 8.3 g/dL (13.6-17.8); MEAN CORPUSCULAR HEMOGLOB 43.5 pg (26.0-34.0); MEAN CORPUSCULAR VOLUME 131.4 fL (80-100); MEAN PLATELET VOLUME 10.7 fL (9.2-13.0); RED CELL COUNT 1.91 10/6/uL (4.7-6.1); WHITE BLOOD CELLS 8.2 10/3/uL (4.5-10.5)
[2016-07-03 06:16] LABS: MANUAL DIFF YES %; MEAN CORPUS HGB CONC 33.1 g/dL (32.0-36.0); PLATELET COUNT 220 10/3/uL (150-400)
[2016-07-03 07:13] LABS: BAND NEUTROPHILS 4 %; IMMATURE GRANS ABSOLUTE (CALC) 0.16 10/3/uL (0.0-0.11); LYMPHOCYTES 8 %; LYMPHOCYTES ABSOLUTE (CALC) 0.66 10/3/uL (0.67-4.30); MACROCYTES 4+ (>50/OIF) (0-5/OIF); METAMYELOCYTES 2 %; MONOCYTES 2 %; MONOCYTES ABSOLUTE (CALC) 0.16 10/3/uL (0.21-1.20); NEUTROPHILS ABSOLUTE (CALC) 7.22 10/3/uL (2.02-8.40); PLATELET ESTIMATE ADQ (ADEQUATE); POLYCHROMASIA 1+ (2-5/OIF) (0-1/OIF); SEGMENTED NEUTROPHIL (0) 84 %; TOTAL NUCLEATED CELLS 100; TOXIC GRANULATION 1+
[2016-07-04 05:29] LABS: BUN (BLOOD UREA NITROGEN) 15 MG/DL (6-23); CALCIUM, SERUM 9.1 MG/DL (8.5-10.4); CHLORIDE, SERUM 102 MMOL/L (96-112); CO2 (CARBON DIOXIDE) 30 MMOL/L (24-34); CREATININE 0.75 MG/DL (0.70-1.30); GFR AFRICAN AMERICAN 121 ML/MIN (>=60); GFR NON AFRICAN AMERICAN 104 ML/MIN (>=60); GLUCOSE, SERUM 81 MG/DL (60-99); HEMATOCRIT 28.5 % (40.0-51.0); HEMOGLOBIN 9.5 g/dL (13.6-17.8); MEAN CORPUS HGB CONC 33.3 g/dL (32.0-36.0); MEAN CORPUSCULAR VOLUME 131.9 fL (80-100); MEAN PLATELET VOLUME 10.7 fL (9.2-13.0); NUCLEATED RED BLOOD CELLS 0.5 /100WBC (0-0); PLATELET COUNT 312 10/3/uL (150-400); POTASSIUM, SERUM 4.2 MMOL/L (3.5-5.3); RBC DISTRIBUTION WIDTH 13.7 % (12.0-16.0); RED CELL COUNT 2.16 10/6/uL (4.7-6.1); SODIUM, SERUM 139 MMOL/L (135-148); WHITE BLOOD CELLS 11.5 10/3/uL (4.5-10.5)
[2016-07-04 05:30] LABS: MANUAL DIFF YES %
[2016-07-04 06:14] LABS: BAND NEUTROPHILS 5 %; IMMATURE GRANS ABSOLUTE (CALC) 0.23 10/3/uL (0.0-0.11); LYMPHOCYTES 5 %; LYMPHOCYTES ABSOLUTE (CALC) 0.58 10/3/uL (0.67-4.30); MACROCYTES 4+ (>50/OIF) (0-5/OIF); METAMYELOCYTES 2 %; PLATELET ESTIMATE ADQ (ADEQUATE); SEGMENTED NEUTROPHIL (0) 88 %; TOTAL NUCLEATED CELLS 100
[2016-07-05 04:11] LABS: BUN (BLOOD UREA NITROGEN) 15 MG/DL (6-23); CALCIUM, SERUM 8.5 MG/DL (8.5-10.4); CHLORIDE, SERUM 103 MMOL/L (96-112); CO2 (CARBON DIOXIDE) 28 MMOL/L (24-34); CREATININE 0.77 MG/DL (0.70-1.30); GFR AFRICAN AMERICAN 119 ML/MIN (>=60); GFR NON AFRICAN AMERICAN 103 ML/MIN (>=60); POTASSIUM, SERUM 3.8 MMOL/L (3.5-5.3); SODIUM, SERUM 139 MMOL/L (135-148)
[2016-07-05 04:27] LABS: GLUCOSE, SERUM 135 MG/DL (60-99)
[2016-07-05 04:34] LABS: HEMOGLOBIN 8.4 g/dL (13.6-17.8); MEAN CORPUS HGB CONC 34.4 g/dL (32.0-36.0); MEAN CORPUSCULAR HEMOGLOB 44.9 pg (26.0-34.0); MEAN CORPUSCULAR VOLUME 130.5 fL (80-100); MEAN PLATELET VOLUME 10.8 fL (9.2-13.0); PLATELET COUNT 366 10/3/uL (150-400); RBC DISTRIBUTION WIDTH 13.8 % (12.0-16.0); RED CELL COUNT 1.87 10/6/uL (4.7-6.1); WHITE BLOOD CELLS 8.5 10/3/uL (4.5-10.5)
[2016-07-05 04:36] LABS: HEMATOCRIT 24.4 % (40.0-51.0); MANUAL DIFF YES %
[2016-07-05 07:30] LABS: IMMATURE GRANS ABSOLUTE (CALC) 0.26 10/3/uL (0.0-0.11); LYMPHOCYTES 15 %; LYMPHOCYTES ABSOLUTE (CALC) 1.28 10/3/uL (0.67-4.30); METAMYELOCYTES 3 %; MONOCYTES 3 %; MONOCYTES ABSOLUTE (CALC) 0.26 10/3/uL (0.21-1.20); NEUTROPHILS ABSOLUTE (CALC) 6.72 10/3/uL (2.02-8.40); SEGMENTED NEUTROPHIL (0) 79 %; TOTAL NUCLEATED CELLS 100
[2016-07-05 07:31] LABS: MACROCYTES 4+ (>50/OIF) (0-5/OIF); PLATELET ESTIMATE ADQ (ADEQUATE); POLYCHROMASIA 1+ (2-5/OIF) (0-1/OIF); TOXIC GRANULATION 1+
[2016-07-05] MEDS ORDERED: L10 PO (11:27)
[2016-07-05] MEDS ORDERED: MD ANDERSON PO/LIQ (11:28)
[2016-07-05] MEDS ORDERED: BACTRIM DS1 TAB PO (11:29)
[2016-07-05] MEDS ORDERED: DULERA 200 MCG/13 GM INH (11:30)
[2016-07-05] MEDS ORDERED: P20 PO (11:30)
[2016-07-05] MEDS ORDERED: NORCO1 TAB PO (11:35)
[2016-07-05] MEDS ORDERED: OXYCOD PO (11:35)
[2016-07-05] MEDS ORDERED: BREO ELLIPTA 21 EACH INH (11:36)
[2016-08-22] MEDS ORDERED: NORCO1 TAB PO (11:47)
[2016-08-22] MEDS ORDERED: FOLIC PO (11:49)
[2016-08-22] MEDS ORDERED: X5 PO (11:49)
[2016-08-22] MEDS ORDERED: MSCONT15 PO (11:50)
[2016-08-22] MEDS ORDERED: ROXICODONE15 MG PO (11:51)
[2016-08-22] MEDS ORDERED: KLOR-CON 1010 MEQ PO (11:52)
[2016-08-22] MEDS ORDERED: L20 PO (11:53)
[2016-08-22] MEDS ORDERED: CLEOCIN300 MG PO (11:53)
[2016-08-22] MEDS ORDERED: NYS500UDL PO (11:55)
[2016-08-22] MEDS ORDERED: PRILOSEC OTC20 MG PO (11:56)
[2016-08-22] MEDS ORDERED: DUONEB INH (11:56)
[2016-08-22] MEDS ORDERED: HALF81 PO (11:57)
[2016-08-22] MEDS ORDERED: BREO ELLIPTA 21 EACH INH (11:58)
[2016-09-03] MEDS ORDERED: AUG875 PO (10:08)
[2016-09-03] MEDS ORDERED: LOP25 PO (10:11)
[2016-09-03] MEDS ORDERED: HABIT21 TOP (10:11)
[2016-09-03] MEDS ORDERED: MIRALAX POWDER1 PKT PO (10:12)
[2016-11-22] MEDS ORDERED: K-TABS10 MEQ PO (19:11)
[2016-11-22] MEDS ORDERED: X5 PO (19:12)
[2016-11-22] MEDS ORDERED: OXYCOD PO (19:13)
[2016-11-22] MEDS ORDERED: MSCONTIN PO (19:13)
[2016-11-22] MEDS ORDERED: PRILO PO (19:14)
[2016-11-22] MEDS ORDERED: FLOMAX4 PO (19:14)
[2016-11-22] MEDS ORDERED: LOP25 PO (19:14)
[2016-11-22] MEDS ORDERED: L20 PO (19:14)
[2016-11-22] MEDS ORDERED: BREO ELLIPTA 21 EACH PO (19:15)
[2016-11-22] MEDS ORDERED: PREPARATIO H PR (19:15)
[2016-11-22] MEDS ORDERED: DUONEB INH (19:15)
[2016-11-22] MEDS ORDERED: FOLIC PO (19:16)
== END 2016-07-05 16:28 | disposition home health service (06) | DRG 189 ==
LOC: ER 14:44 → 6NO 20:49 → IMCU 06-27 11:37 → 4EA 07-02 14:50
PROVIDERS: Emergency Medicine; Internal Medicine
PROC: 0J9H0ZX Drainage of Left Lower Arm Subcutaneous Tissue and Fascia, Open Approach, Diagnostic (ICD-10-PCS; principal; 2016-07-04)
DX: J96.01 Acute respiratory failure with hypoxia (principal); D61.818 Other pancytopenia; D61.810 Antineoplastic chemotherapy induced pancytopenia; C34.90 Malignant neoplasm of unspecified part of unspecified bronchus or lung; J44.1 Chronic obstructive pulmonary disease with (acute) exacerbation; E87.1 Hypo-osmolality and hyponatremia; F10.239 Alcohol dependence with withdrawal, unspecified; J96.02 Acute respiratory failure with hypercapnia; R63.0 Anorexia; E87.6 Hypokalemia; Z66 Do not resuscitate; M70.32 Other bursitis of elbow, left elbow; F17.210 Nicotine dependence, cigarettes, uncomplicated
CPT/HCPCS: 36600; 71010; 71275; 73080-LT; 80048; 80053; 81001; 82607; 82746; 82805; 82962; 83605; 83735; 83880; 84100; 84145; 84443; 85025; 85610; 85730; 87040; 87070; 87077; 87186; 87205; 87641; 94640; 94660; 94762; 96365; 96375; 99291; A9270-GY; J0360; J0456; J2930; Q9967